=== PATIENT | female | born 1965 | race Caucasian/White ===

== ENCOUNTER 2018-11-14 20:48 | Emergency (ER) | payer MEDICAID, OTHER ==
[2018-11-15] MEDS: KETOROLAC 30 MG INJ IM
== END 2018-11-15 00:31 | disposition home or self-care (01) ==
LOC: FTE 11-15 00:31
DX: R21 Rash and other nonspecific skin eruption (principal); Z85.3 Personal history of malignant neoplasm of breast
CPT/HCPCS: 96372; 99284-25